=== PATIENT | female | born 1995 | race Two or more races ===

== ENCOUNTER → 2017-11-30 | Outpatient (CLI) | payer BC ==
[~2017-11-30] MED LIST: IOPAMIDOL (ISOVUE-300) 100 ML BTL ONE
== END ==
LOC: CIMAGING 09:13
PROVIDERS: ATTEND Nurse Practitioner Family
DX: K80.20 Calculus of gallbladder without cholecystitis without obstruction (principal); Z97.5 Presence of (intrauterine) contraceptive device
CPT/HCPCS: 74177-PO; Q9967

== ENCOUNTER → 2017-12-08 | Outpatient (CLI) | payer BC | LOC: FIMAGING 10:19 | PROVIDERS: ATTEND Nurse Practitioner Family | DX: R10.11 Right upper quadrant pain (principal); R11.0 Nausea | CPT/HCPCS: A9537 ==